=== PATIENT | female | born 1995 | race Caucasian/White ===

== ENCOUNTER 2022-04-08 18:09 | Emergency (ER) | payer SELFPAY ==
[~2022-04-08] VITALS: Ht 175.3 cm; Wt 113.4 kg
== END 2022-04-08 19:36 | disposition home or self-care (01) ==
LOC: ER 18:09
DX: S61.511A Laceration without foreign body of right wrist, initial encounter (principal); W25.XXXA Contact with sharp glass, initial encounter
CPT/HCPCS: 12001; 99282-25

== ENCOUNTER → 2022-07-29 | Outpatient (CLI) | payer MEDICARE, OTHER ==
[2022-07-29 16:44] LABS: Source, Urine Clean Catch
[2022-07-29 18:51] LABS: Bacteria Many /hpf; Red Blood Cells, Urine 0-2 /hpf (0-2); Squamous Epithelial Cells Many /hpf (Few)
== END ==
LOC: LAB SHORT 16:42 → LAB 16:42
PROVIDERS: Advanced Practice Midwife
DX: Z34.01 Encounter for supervision of normal first pregnancy, first trimester (principal)
CPT/HCPCS: 81015; 87086